=== PATIENT | male | born 1995 | race Caucasian/White ===

== ENCOUNTER → 2023-05-10 | Outpatient (CLI) | payer MEDICAID ==
--- NOTE | 2023-05-10 10:45 | CT ---
EXAMINATION TYPE: CT brain wo con DATE OF EXAM: 05/10/2023 COMPARISON: None HISTORY: fall off ladder, headache,hit nose/eyes x3days ago CT DLP: 1530.4 mGycm. Automated Exposure Control for Dose Reduction was Utilized. TECHNIQUE: CT scan of the head is performed without contrast. FINDINGS: There is no acute intracranial hemorrhage, mass effect, or midline shift identified. The ventricles and sulci are within normal limits in size. Orbits are symmetric. Paranasal sinuses are c lear. IMPRESSION: No acute intracranial hemorrhage, mass effect, or midline shift is seen.
--- NOTE | 2023-05-10 10:52 | CT ---
EXAMINATION TYPE: CT facial bones wo con DATE OF EXAM: 05/10/2023 COMPARISON: none HISTORY: Follow-up post trauma CT DLP: 1530.4 mGycm Automated exposure control for dose reduction was used. TECHNIQUE: CT scan of the sinuses is performed without contrast, axial images are obtained, coronal r eformatted images are also reviewed. FINDINGS: The paranasal sinuses including the frontal, ethmoid, sphenoid, and maxillary sinuses bila terally are well-aerated without abnormal opacification. The ostiomeatal complex is patent bilateral ly on the coronal images. Small lauren bullosa. Visualized portion of mastoid air cells show no abnormal opacification. The globes are intact bilate rally. There is a displaced fractures. Nasal bones impression of the nasal bridge by approximately 1.2 mm. Tiny chip fracture off the anterior margin of the maxillary styloid. IMPRESSION: 1. There is a comminuted displaced and depressed nasal bridge fracture.
== END | disposition home or self-care (01) ==
LOC: RADCTMAIN 09:54
PROVIDERS: ATTEND Family Medicine
DX: S02.2XXA Fracture of nasal bones, initial encounter for closed fracture (principal); S09.90XD Unspecified injury of head, subsequent encounter
CPT/HCPCS: 70450; 70486